=== PATIENT | female | born 1940 | race Caucasian/White ===

== ENCOUNTER → 2018-01-15 14:02 | Outpatient (CLI) | payer MEDICARE, SELFPAY ==
[2018-01-15 14:46] LABS: Alanine Aminotransferase 20 IU/L (9-52); Albumin 4.1 g/dL (3.5-5.0); Albumin Globulin Ratio 1.1 (1.0-2.8); Alkaline Phosphatase 81 U/L (38-126); Aspartate Aminotransferase 22 IU/L (14-36); Bilirubin Total 1.2 mg/dL (0.2-1.3); Blood Urea Nitrogen 14 mg/dL (7-17); Calcium 9.4 mg/dL (8.4-10.2); Carbon Dioxide 28 mmol/L (22-32); Chloride 101 mmol/L (98-107); Estimated Glomerular Filt Rate > 60.0 mL/min (>60); Globulin 3.6 g/dL (1.7-4.1); Glucose 115 mg/dL (80-110); HEMOLYSIS < 15 (0-50); Potassium 4.5 mmol/L (3.4-5.1); Sodium 139 mmol/L (137-145); Total Protein 7.7 g/dL (6.3-8.2)
[2018-01-15 15:28] LABS: TSH w/ Reflex to FT4 3.26 uIU/mL (0.47-4.68)
== END ==
PROVIDERS: PCP Internal Medicine; Visit Provider Internal Medicine
DX: E03.9 Hypothyroidism, unspecified (principal); I10 Essential (primary) hypertension
CPT/HCPCS: 36415; 80053; 84443

== ENCOUNTER → 2018-02-04 10:33 | Outpatient (CLI) | payer MEDICARE, SELFPAY ==
--- NOTE | 2018-02-04 10:34 | DI.RAD.S_ITS ---
PROCEDURE: XR HAND RT MIN 3V INDICATIONS: hand pain TECHNIQUE: 3 views of the hand(s) acquired. COMPARISON: None. FINDINGS: Bones: No fractures or dislocations. Carpal bones are normally aligned. No suspicious bony lesions. Degenerative joint disease is most marked at the IP joint of the thumb and DIP joints of the index and middle fingers. Triscaphe and first carpometacarpal joint disease also present. Accessory ossicles and soft tissue calcifications distal to the ulnar styloid process Soft tissues: No suspicious soft tissue calcifications. IMPRESSION: Osteoarthritis right hand Dictated by: Jay Gutierrez M.D. on 02/04/2018 at 11:26 Approved by: Jay Gutierrez M.D. on 02/04/2018 at 11:28
== END ==
PROVIDERS: PCP Internal Medicine; Visit Provider Internal Medicine
DX: M19.041 Primary osteoarthritis, right hand (principal); M79.641 Pain in right hand
CPT/HCPCS: 73130

== ENCOUNTER → 2018-05-10 14:31 | Outpatient (CLI) | payer MEDICARE, SELFPAY ==
--- NOTE | 2018-05-10 14:38 | DI.RAD.S_ITS ---
PROCEDURE: XR LUMBAR SPINE 2-3V INDICATIONS: Low back pain TECHNIQUE: 3 views of the lumbar spine were acquired. COMPARISON: None. FINDINGS: Bones: No fracture or focal osseous destruction. Grade 1 anterolisthesis of L3 on L4 and L4-L5. There is diffuse facet arthropathy. Mild narrowing of the L3-L4, L4-L5 and L5-S1 disc spaces. There appear to be 6 jgt-rpt-iwagxfi lumbar vertebra. Please see montage image for clarification of spinal segmental level numbering scheme used in this report Soft tissues: Overlying bowel gas pattern is normal. No suspicious soft tissue calcifications. There are aortic atherosclerotic vascular calcifications. IMPRESSION: Mild mid to lower lumbar disc degeneration and diffuse facet arthropathy. Grade 1 anterolisthesis of L3 on L4 and L4 on L5. Spinal segmental level anatomic variation. Please see montage image for clarification of the numbering scheme used in this report. Dictated by: Aden Rodgers M.D. on 05/10/2018 at 16:30 Approved by: Aden Rodgers M.D. on 05/10/2018 at 16:35
--- NOTE | 2018-05-10 14:38 | DI.RAD.S_ITS ---
PROCEDURE: XR PELVIS 1-2V INDICATIONS: Hip pain TECHNIQUE: Single view(s) of the pelvis acquired. COMPARISON: None. FINDINGS: Bones: No fractures or dislocations. No suspicious bony lesions. Lower lumbar discogenic changes. Bilateral mild to moderate joint degeneration. Degenerative sclerosis and spurring present at the pubic symphysis. Soft tissues: Visualized bowel gas pattern is normal. No suspicious soft tissue calcifications. IMPRESSION: Fefr-wx-vmpladcs bilateral hip degeneration. Lower lumbar degenerative disc disease. Dictated by: Aden Rodgers M.D. on 05/10/2018 at 16:35 Approved by: Aden Rodgers M.D. on 05/10/2018 at 16:37
== END ==
PROVIDERS: PCP Internal Medicine; Visit Provider Registered Nurse
DX: M54.5 Low back pain (principal); M51.36 Other intervertebral disc degeneration, lumbar region; M47.816 Spondylosis without myelopathy or radiculopathy, lumbar region; M43.16 Spondylolisthesis, lumbar region
CPT/HCPCS: 72100; 72170

== ENCOUNTER → 2019-04-02 13:51 | Outpatient (CLI) | payer MEDICARE, SELFPAY ==
--- NOTE | 2019-04-28 10:14 | P.HOLT.S_ITS ---
Internet Webmaster Report Referral & Results Date Patient Seen: 04/02/19 Requesting provider: Quinton Pierre Indication: Arrhythmia Duration of monitoring (days): 13 Diary information: There were 0 patient diary entries in 1 patient triggered event. The triggered event was associated with sinus rhythm Data: Minimum heart rate identified Lantus 32 beats per minute at 06:35 on 04/06/2019 Maximum sinus rhythm with 92 beats per minute at 17:36 on 04/14/2019 Maximum overall heart rate is 158 beats per minute at 15:34 on 04/12/2019 during a 12 beat run of SVT/atrial tachycardia Less than 1% of identified beats were PACs Approximately 2.4% of identified beats were PVCs including runs of ventricular bigeminy and ventricular trigeminy. Patient had a 58.2nd run of ventricular bigeminy and 20.2nd run of ventricular trigeminy Impression: Occasional runs of a supraventricular tachycardia or atrial tachycardia. Longest of which was 25.3 seconds a rate of 92 beats per minute. Occasional PVCs otherwise
== END ==
PROVIDERS: PCP Internal Medicine; Visit Provider Internal Medicine
DX: I49.9 Cardiac arrhythmia, unspecified (principal)
CPT/HCPCS: 0296T; 0298T

== ENCOUNTER → 2020-06-21 11:32 | Outpatient (CLI) | payer MEDICARE, SELFPAY ==
[2020-06-21 12:16] LABS: Add Manual Diff / Slide Review NO; Basophils Absolute Auto 0 /uL (0-100); Basophils Percent Auto 0.7 % (0-2); Eosinophils Absolute Auto 200 /uL (0-450); Hematocrit 41.7 % (36-46); Hemoglobin 14.1 g/dL (12.0-16.0); Lymphocytes Absolute Auto 1100 /uL (1100-4500); Lymphocytes Percent Auto 20.2 % (25-40); Mean Corpuscular HGB Conc 33.9 % (30-36); Mean Corpuscular Hemoglobin 31.1 PG (26-34); Mean Corpuscular Volume 91.6 fL (80-100); Monocytes Absolute Auto 500 /uL (0-900); Monocytes Percent Auto 8.6 % (3-14); Neutrophils Absolute Auto 3600 /uL (1500-7000); Neutrophils Percent Auto 67.5 % (50-75); Platelet Count 206 X10^3/uL (150-400); Red Blood Cell Count 4.55 X10^6/uL (4.0-5.2); White Blood Cell Count 5.3 X10^3/uL (4.5-11.0)
[2020-06-21 12:53] LABS: Alanine Aminotransferase 13 IU/L (<35); Albumin 3.8 g/dL (3.5-5.0); Albumin Globulin Ratio 1.2 (1.0-2.8); Alkaline Phosphatase 79 U/L (38-126); Aspartate Aminotransferase 26 IU/L (14-36); BUN Creatinine Ratio 22.2 (6-22); Bilirubin Total 1.1 mg/dL (0.2-1.3); Blood Urea Nitrogen 16 mg/dL (7-17); Calcium 9.3 mg/dL (8.4-10.2); Carbon Dioxide 29 mmol/L (22-32); Chloride 105 mmol/L (98-107); Estimated Glomerular Filt Rate > 60.0 mL/min (>60); Globulin 3.2 g/dL (1.7-4.1); Glucose 115 mg/dL (80-110); HEMOLYSIS < 15 (0-50); Potassium 4.3 mmol/L (3.4-5.1); Sodium 137 mmol/L (137-145)
== END ==
PROVIDERS: PCP Internal Medicine; Referring Provider Internal Medicine; Visit Provider Internal Medicine
DX: E03.9 Hypothyroidism, unspecified (principal); E78.2 Mixed hyperlipidemia; I10 Essential (primary) hypertension
CPT/HCPCS: 36415; 80053; 84443; 85025

== ENCOUNTER → 2023-05-15 12:09 | Outpatient (CLI) | payer MEDICARE, SELFPAY ==
[2023-05-15 13:13] LABS: Alanine Aminotransferase 14 IU/L (<35); Albumin 4.1 g/dL (3.5-5.0); Albumin Globulin Ratio 1.2 (1.0-2.8); Alkaline Phosphatase 90 U/L (38-126); Aspartate Aminotransferase 28 IU/L (14-36); BUN Creatinine Ratio 16.5 (6-22); Blood Urea Nitrogen 15 mg/dL (7-17); Calcium 9.5 mg/dL (8.4-10.2); Carbon Dioxide 31 mmol/L (22-32); Chloride 101 mmol/L (98-107); Estimated Glomerular Filt Rate > 60 mL/min (>60); Globulin 3.5 g/dL (1.7-4.1); Glucose 124 mg/dL (80-110); HEMOLYSIS < 15 (0-50); Sodium 138 mmol/L (137-145); Total Protein 7.6 g/dL (6.3-8.2)
[2023-05-15 13:27] LABS: Free T4, Direct Thyroxine 1.13 ng/dL (0.78-2.19)
[2023-05-15 13:42] LABS: Thyroid Stimulating Hormone 2.57 uIU/mL (0.47-4.68)
== END ==
PROVIDERS: PCP Internal Medicine; Referring Provider Internal Medicine; Visit Provider Internal Medicine
DX: E03.9 Hypothyroidism, unspecified (principal); E78.2 Mixed hyperlipidemia; I10 Essential (primary) hypertension
CPT/HCPCS: 36415; 80053; 84439; 84443

== ENCOUNTER 2024-05-16 12:16 | Emergency (ER) | payer MEDICARE, SELFPAY ==
[2024-05-16] VITALS (17 sets, daily range): BP systolic 183–240; BP diastolic 77–103; PULSE 56–126; RESP 12–38; TEMP 36.8; O2SAT 93–98; BMI 38.5
--- NOTE | 2024-05-16 13:01 | DI.RAD.S_ITS ---
PROCEDURE: XR CHEST 1V INDICATIONS: chest pain TECHNIQUE: One view of the chest was acquired. COMPARISON: [facility], CT, CT ANGIO CHEST PE, 09/14/2022, 4:47. [facility], CR, XR CHEST 1 VIEW, 07/05/2023, 17:27. [facility], CR, XR CHEST 1 VIEW, 05/15/2024, 14:08. FINDINGS: Surgical changes and devices: None. Lungs and pleura: Lungs are unchanged with a mild chronic interstitial prominence. No pleural effusions or pneumothorax. Mediastinum: Mediastinal contours appear normal. Heart size is at the upper limits of normal. Bones and chest wall: No suspicious bony lesions. Overlying soft tissues appear unremarkable. IMPRESSION: Chronic mild interstitial prominence, heart size at the upper limits of normal, possible mild chronic CHF pattern. Dictated by: Elvin Parker M.D. on 05/16/2024 at 13:33 Approved by: Elvin Parker M.D. on 05/16/2024 at 13:35
--- NOTE | 2024-05-16 13:08 | EKG_ITS ---
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
[2024-05-16 13:40] LABS: Add Manual Diff / Slide Review NO; Basophils Absolute Auto 0 /uL (0-100); Basophils Percent Auto 0.6 % (0-2); Eosinophils Absolute Auto 100 /uL (0-450); Eosinophils Percent Auto 1.9 % (2-4); Hematocrit 43.2 % (36-46); Hemoglobin 14.7 g/dL (12.0-16.0); Lymphocytes Absolute Auto 800 /uL (1100-4500); Lymphocytes Percent Auto 15.3 % (25-40); Mean Corpuscular Hemoglobin 31.1 PG (26-34); Mean Corpuscular Volume 91.4 fL (80-100); Monocytes Absolute Auto 400 /uL (0-900); Monocytes Percent Auto 6.9 % (3-14); Neutrophils Absolute Auto 4000 /uL (1500-7000); Neutrophils Percent Auto 75.3 % (50-75); Platelet Count 229 X10^3/uL (150-400); Red Blood Cell Count 4.73 X10^6/uL (4.0-5.2); Red Cell Distribution Width 13.8 % (11.6-14.8); White Blood Cell Count 5.4 X10^3/uL (4.5-11.0)
[2024-05-16 13:48] LABS: Prothrombin Time 11.1 SECONDS (9.4-12.5)
[2024-05-16 13:51] LABS: PTT Partial Thromboplastin Tim 34 SECONDS (25.1-36.5)
[2024-05-16 13:57] LABS: Alanine Aminotransferase 15 IU/L (<35); Albumin Globulin Ratio 1.2 (1.0-2.8); Alkaline Phosphatase 63 U/L (38-126); Aspartate Aminotransferase 35 IU/L (14-36); BUN Creatinine Ratio 17.5 (6-22); Bilirubin Total 1.4 mg/dL (0.2-1.3); Blood Urea Nitrogen 11 mg/dL (7-17); Calcium 8.9 mg/dL (8.4-10.2); Carbon Dioxide 25 mmol/L (22-32); Chloride 105 mmol/L (98-107); Creatine Kinase 51 U/L (30-135); Estimated Glomerular Filt Rate > 60 mL/min (>60); Globulin 3.4 g/dL (1.7-4.1); Glucose 110 mg/dL (80-110); Lipase 41 U/L (23-300); Magnesium 1.9 mg/dL (1.6-2.3); Potassium 4.3 mmol/L (3.4-5.1); Sodium 137 mmol/L (137-145); Total Protein 7.4 g/dL (6.3-8.2)
[2024-05-16 14:11] LABS: Troponin I < 0.012 ng/mL (0.01-0.034)
[2024-05-16 14:44] LABS: HEMOLYSIS 135 (0-50)
[2024-05-16 15:00] LABS: NT-proBNP (BNP-Adult 18+) 443 pg/mL (<450)
--- NOTE | 2024-05-16 15:23 | ED_ITS ---
HPI - General Adult General Chief complaint: Hypertension Stated complaint: high bp Time Seen by Provider: 05/16/24 15:23 Source: patient Mode of arrival: Family Vehicle History of Present Illness HPI narrative: Patient is an 84-year-old female history of atrial fibrillation, endometrial cancer, hypertension hyperlipidemia presenting to ER with elevated blood pressure. She was supposed to see your primary care doctor today at 2:00 p.m. but came to the ER instead. She was actually seen and evaluated at [facility] yesterday for the same at that time she would blood pressure of 206/68 she had full cardiac workup did not show evidence of end-organ damage she was given hydralazine labetalol and lisinopril. Today complaining of a mild headache says that her legs are weak although she can lift them and she can ambulate. No significant numbness or tingling. No difficulty speaking or facial droop. No real chest pain or palpitations or shortness of breath. Related Data Home Medications Medication Instructions Recorded Confirmed aspirin 325 mg tablet 325 mg PO DAILY 01/15/18 01/03/24 Previous Rx's Medication Instructions Recorded Disabled Parking Permit ea ##1 04/24/17 lisinopril 20 mg tablet 20 mg PO DAILY #90 tabs 09/17/23 carvedilol 3.125 mg tablet 6.25 mg (2 x 3.125 mg) PO BID #120 11/19/23 tabs lorazepam 0.5 mg tablet 0.5 mg PO Q8H PRN anxiety #30 tabs 04/01/24 simvastatin 40 mg tablet 40 mg PO DAILY #90 tabs 04/15/24 Disabled Parking #1 ea 04/21/24 Allergies Allergy/AdvReac Type Severity Reaction Status Date / Time citalopram [CITALOPRAM] AdvReac Unknown PT STATES Verified 05/16/24 12:58 SHE HAS NEVER TAKEN THIS clonazepam [CLONAZEPAM] AdvReac Unknown PT STATES Verified 05/16/24 12:58 SHE HAS NEVER TAKEN THIS paroxetine [From PAXIL] AdvReac Unknown Verified 05/16/24 12:58 Patient History Medical History (Updated 05/16/24 @ 16:43 by Ani Elaine DO) Vision disorder Hearing deficit Hay fever (~2012) Restless leg syndrome Foot pain (~2012) Chronic back pain (~1999) Mumps (~1944) Measles (~194) Chicken pox (~1944) Partial blindness (~2009) Depression (~2009) Hemorrhoid (~1961) Atrial fibrillation (~2008) Primary osteoarthritis involving multiple joints (09/10/17) Mixed hyperlipidemia (01/17/16) Gastroesophageal reflux disease without esophagitis Paroxysmal atrial fibrillation Essential hypertension Generalized anxiety disorder Acquired hypothyroidism Surgical History Anesthesia Status post bilateral salpingo-oophorectomy (BSO) (~03/2016) Status post hysterectomy (~03/2016) Status post appendectomy History of tonsillectomy Status post laparoscopic cholecystectomy (~1961) Family History Mother [facility] (myocardial infarction) Father No problems noted. Social History Smoking Status: Former smoker alcohol intake: never substance use type: does not use Smoking Status: Former smoker tobacco type: cigarettes alcohol intake frequency: 0-2 drinks per day Substance Use Type: does not use Exam Initial Vital Signs Initial Vital Signs: Vital Signs Temperature 98.2 F 05/16/24 12:53 Pulse Rate 65 05/16/24 12:53 Respiratory Rate 19 05/16/24 12:53 Blood Pressure 198/83 H 05/16/24 12:53 Pulse Oximetry 97 05/16/24 12:53 Oxygen Delivery Method Room Air 05/16/24 12:53 GENERAL: Alert tearful anxious 84-year-old female HEENT: Head atraumatic,EOMI, pupils reactive, face symmetric, moist mucous membranes CARDIOVASCULAR: Regular rate and rhythm without murmurs, rubs or gallops. RESPIRATORY: Breath sounds equal bilaterally, no wheezes rales or rhonchi. ABDOMEN: Soft, nontender. Normoactive bowel sounds all 4 quadrants. No guarding or rebound. EXTREMITIES: Normal range of motion, no clubbing or edema. Neurovascularly intact NEUROLOGICAL: Alert and oriented x4.Normal gait and speech. Cranial nerves II through XII grossly intact. Good vfjpnh-zu-pzfi, good wmxi-ow-mivy, strength equal bilaterally, no dysarthria or aphasia, sensation in tact to soft touch bilaterally, no visual changes, no facial droop SKIN: Warm, dry, no laceration, no petechiae, no rashes or lesions. Scores NIH Stroke Scale Level of Conciousness: Alert, keenly responsive Ask month/age: Answers both questions correctly. Open/close eyes, close hand: Performs both tasks correctly Best gaze horizontal: Normal Visual wood: No visual loss Facial palsy: Normal symetrical movement Left arm drift: No drift for full 10 sec Right arm drift: No drift for full 10 sec Left leg drift: No drift for full 5 sec Right leg drift: No drift for full 5 sec Limb ataxia: Absent Sensory on face/arms/legs: Normal, no sensory loss Best language: No aphasia, normal Dysarthria: Normal Extinction or inattention: No abnormality Total NIH Stroke scale score: 0 Course Orders Ordered: Discontinued Medications Aspirin (Aspirin 81 Mg Chew Tab) 324 mg PO NOW ONE Stop: 05/16/24 13:02 Last Admin: 05/16/24 16:28 Dose: Not Given Documented By: JARETH Labetalol HCl (Labetalol 20 Mg/4 Ml Syringe) 10 mg IV NOW ONE Stop: 05/16/24 15:39 Last Admin: 05/16/24 16:12 Dose: 10 mg Documented By: JARETH Lisinopril (Lisinopril 20 Mg Tablet) 40 mg PO NOW ONE Stop: 05/16/24 15:51 Last Admin: 05/16/24 16:28 Dose: 40 mg Documented By: JARETH Vital Signs Vital signs: Vital Signs - 8 hr 05/16/24 12:53 05/16/24 14:47 05/16/24 16:12 Temperature 98.2 F Pulse Rate 65 90 66 Respiratory Rate 19 20 Blood Pressure 198/83 H 231/100 H 193/83 H Pulse Oximetry 97 98 Oxygen Delivery Method Room Air Room Air 05/16/24 16:28 Temperature Pulse Rate 66 Respiratory Rate Blood Pressure 193/83 H Pulse Oximetry Oxygen Delivery Method Medical Decision Making Lab Data 05/16/24 13:21 05/16/24 13:21 Labs: Lab Results 05/16/24 Range/Units 13:21 WBC 5.4 (4.5-11.0) X10^3/uL RBC 4.73 (4.0-5.2) X10^6/uL Hgb 14.7 (12.0-16.0) g/dL Hct 43.2 (36-46) % MCV 91.4 (80-100) fL MCH 31.1 (26-34) PG MCHC 34.0 (30-36) % RDW 13.8 (11.6-14.8) % Plt Count 229 (150-400) X10^3/uL Neut % (Auto) 75.3 H (50-75) % Lymph % (Auto) 15.3 L (25-40) % [place] % (Auto) 6.9 (3-14) % Eos % (Auto) 1.9 L (2-4) % Baso % (Auto) 0.6 (0-2) % Neut # (Auto) 4000 (5829-9838) /uL Lymph # (Auto) 800 L (1772-6449) /uL [place] # (Auto) 400 (0-900) /uL Eos # (Auto) 100 (0-450) /uL Baso # (Auto) 0 (0-100) /uL PT 11.1 (9.4-12.5) SECONDS INR 1.0 (0.9-1.3) APTT 34 (25.1-36.5) SECONDS Sodium 137 (137-145) mmol/L Potassium 4.3 (3.4-5.1) mmol/L Chloride 105 (98-107) mmol/L Carbon Dioxide 25 (22-32) mmol/L BUN 11 (7-17) mg/dL Creatinine 0.63 (0.52-1.04) mg/dL Estimated GFR > 60 (>60) mL/min BUN/Creatinine Ratio 17.5 (6-22) Glucose 110 (80-110) mg/dL Calcium 8.9 (8.4-10.2) mg/dL Magnesium 1.9 (1.6-2.3) mg/dL Total Bilirubin 1.4 H (0.2-1.3) mg/dL AST 35 (14-36) IU/L ALT 15 (<35) IU/L Alkaline Phosphatase 63 (38-126) U/L Total Creatine Kinase 51 (30-135) U/L Troponin I < 0.012 (0.01-0.034) ng/mL NT-Pro-B Natriuret Pep 443 (<450) pg/mL Total Protein 7.4 (6.3-8.2) g/dL Albumin 4.0 (3.5-5.0) g/dL Globulin 3.4 (1.7-4.1) g/dL Albumin/Globulin Ratio 1.2 (1.0-2.8) Lipase 41 (23-300) U/L Imaging Data Chest x-ray: Radiologist's Impression: PROCEDURE: XR CHEST 1V INDICATIONS: chest pain TECHNIQUE: One view of the chest was acquired. COMPARISON: [facility], CT, CT ANGIO CHEST PE, 09/14/2022, 4:47. [facility], CR, XR CHEST 1 VIEW, 07/05/2023, 17:27. [facility], CR, XR CHEST 1 VIEW, 05/15/2024, 14:08. FINDINGS: Surgical changes and devices: None. Lungs and pleura: Lungs are unchanged with a mild chronic interstitial prominence. No pleural effusions or pneumothorax. Mediastinum: Mediastinal contours appear normal. Heart size is at the upper limits of normal. Bones and chest wall: No suspicious bony lesions. Overlying soft tissues appear unremarkable. IMPRESSION: Chronic mild interstitial prominence, heart size at the upper limits of normal, possible mild chronic CHF pattern. Dictated by: Elvin Parker M.D. on 05/16/2024 at 13:33 ECG Data Attestation: I personally reviewed and interpreted this ECG as follows: Prior ECG tracings: available for review Interpretation: Normal sinus rhythm rate 63 UT interval 140 QRS 82 QTC of [address] changes similar to prior MDM Narrative Medical decision making narrative: Patient 84-year-old female presenting today with high blood pressure. She has some mild weakness but no focal deficits NIH stroke scale of 0. Blood pressure is noted to be elevated with a systolic went as high as 240/103 ever has come down to 183/91 with labetalol and 40 of lisinopril. Hydralazine can cause rebound hypertension so not sure this is playing a part in her elevated blood pressure. Blood work has been reviewed she has no end-organ damage looks similar to yesterday I have received and reviewed records from [facility] emergency depart Chest x-ray no acute cardiopulmonary process EKG shows no ischemia 1550 Dr. Pierre consulted agrees that patient should double her lisinopril. He is happy to see her next week and will make arrangements I have discussed plan with patient and that PCP wants her to take the lisinopril. Apparently she wanted to make sure that Dr. Pierre was on board with this plan which he is. She has feeling a little bit better. Really see a need for repeat head CT today think symptoms are related elevated blood prssure Discharge Plan Departure Patient Disposition: Home Clinical Impression: Hypertension Instructions: DI for High Blood Pressure Activity Restrictions/Additional Instructions: *You have been diagnosed with hypertension *What to do: At this time please follow-up with Dr. Pierre. In the emergency department you were given 40 mg of lisinopril, and 10 mg of labetalol *Continue to take medications as directed Increase lisinopril to 40 mg *Follow up with your primary care provider in 2-3 days or call [phone] Follow-up with Dr. Pierre he should be able to see you early next week *Return to ER if you should have increase weakness headache chest pain shortness of breath or any new, worsening or concerning symptoms Prescriptions: No Action Disabled Parking Permit Qty: 1 0RF lisinopril 20 mg tablet 20 mg PO DAILY Qty: 90 3RF carvedilol 3.125 mg tablet 6.25 mg PO BID Qty: 120 12RF lorazepam 0.5 mg tablet 0.5 mg PO Q8H PRN (Reason: anxiety) Qty: 30 1RF simvastatin 40 mg tablet 40 mg PO DAILY Qty: 90 0RF (DME) Disabled Parking See Rx Instructions .ROUTE .MEDSUPPLY Qty: 1 0RF Rx Instructions: Patient qualifies for disabled parking as per the attached form. aspirin 325 mg tablet 325 mg PO DAILY Referrals: Quinton Pierre MD [Primary Care Provider] - Stand Alone Forms: Patient Portal/API
[2024-05-16] MEDS: LABETALOL 20 MG/4 ML SYRINGE 10 MG IV (16:12)
[2024-05-16] MEDS: lisinopriL 20 MG TABLET 40 MG PO (16:28)
== END 2024-05-16 17:10 | disposition home or self-care (01) ==
PROVIDERS: Emergency Provider Emergency Medicine; PCP Internal Medicine
DX: I10 Essential (primary) hypertension (principal); R07.9 Chest pain, unspecified; I48.91 Unspecified atrial fibrillation; E78.5 Hyperlipidemia, unspecified; R51.9 Headache, unspecified
CPT/HCPCS: 36415; 71045; 80053; 82550; 83690; 83735; 83880; 84484; 85025; 85610; 85730; 93005; 96374; 99284

== ENCOUNTER 2024-12-08 06:40 | Emergency (ER) | payer MEDICARE, SELFPAY ==
[2024-12-08] VITALS (31 sets, daily range): BP systolic 113–180; BP diastolic 56–107; PULSE 49–132; RESP 11–23; TEMP 36.8; O2SAT 92–98; BMI 39.0
--- NOTE | 2024-12-08 06:42 | DI.RAD.S_ITS ---
PROCEDURE: XR CHEST 1V INDICATIONS: Chest Pain,arrythmia TECHNIQUE: One view of the chest was acquired. COMPARISON: [facility], CR, XR CHEST 1V, 05/16/2024, 13:05. FINDINGS: Surgical changes and devices: None. Lungs and pleura: Patchy bilateral airspace opacities with superimposed bronchial thickening. Mediastinum: Mediastinal contours appear normal. Heart size is enlarged. Bones and chest wall: No suspicious bony lesions. Overlying soft tissues appear unremarkable. IMPRESSION: Patchy bilateral airspace opacities with superimposed bronchial thickening . Findings suggest infection, less likely aspiration . Recommend follow-up in 1-2 months with chest x-ray to ensure resolution. Dictated by: Joshua Sylvester M.D. on 12/08/2024 at 9:01 Approved by: Joshua Sylvester M.D. on 12/08/2024 at 9:02
--- NOTE | 2024-12-08 06:49 | EKG_ITS ---
[facility] [address] [place] [address] Test Date: 2024-12-08 Pat Name: Payal Smith Department: [facility] Room: Gender: Female Guide Visitor: LUCIANO LUCY : 1940 Requested By: Order Number: [id number] Reading MD: Quinton Pierre MD Measurements Intervals [place] Rate: 101 P: [place]: QRS: 32 QRSD: 82 T: 19 QT: 304 QTc: 394 Interpretive Statements Atrial fibrillation with rapid ventricular response Electronically Signed On 12-08-2024 7:29:28 PDT by Quinton Pierre MD
--- NOTE | 2024-12-08 07:06 | PC.NURSE ---
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 Patient said I should have told you but I get panic attacks. Panic attack requested to have the door wide open to see everything. Kept door/curtain open for patient comfort and sat with patient for a bit.
[2024-12-08 07:11] LABS: Add Manual Diff / Slide Review NO; Basophils Absolute Auto 100 /uL (0-100); Basophils Percent Auto 0.9 % (0-2); Eosinophils Absolute Auto 200 /uL (0-450); Hematocrit 42.3 % (36-46); Hemoglobin 14.3 g/dL (12.0-16.0); Lymphocytes Absolute Auto 1400 /uL (1100-4500); Mean Corpuscular HGB Conc 33.8 % (30-36); Mean Corpuscular Hemoglobin 30.7 PG (26-34); Monocytes Absolute Auto 700 /uL (0-900); Monocytes Percent Auto 10.6 % (3-14); Neutrophils Absolute Auto 3900 /uL (1500-7000); Neutrophils Percent Auto 63.5 % (50-75); Platelet Count 249 X10^3/uL (150-400); Red Blood Cell Count 4.65 X10^6/uL (4.0-5.2); Red Cell Distribution Width 13.8 % (11.6-14.8); White Blood Cell Count 6.2 X10^3/uL (4.5-11.0)
[2024-12-08 07:13] LABS: Prothrombin Time 11.3 SECONDS (9.4-12.5)
[2024-12-08 07:16] LABS: PTT Partial Thromboplastin Tim 34 SECONDS (25.1-36.5)
[2024-12-08 07:18] LABS: Alanine Aminotransferase 14 IU/L (<35); Albumin 3.7 g/dL (3.5-5.0); Albumin Globulin Ratio 1.2 (1.0-2.8); Alkaline Phosphatase 81 U/L (38-126); Aspartate Aminotransferase 27 IU/L (14-36); BUN Creatinine Ratio 16.7 (6-22); Blood Urea Nitrogen 12 mg/dL (7-17); Calcium 9.1 mg/dL (8.4-10.2); Carbon Dioxide 22 mmol/L (22-32); Chloride 108 mmol/L (98-107); Creatine Kinase 40 U/L (30-135); Estimated Glomerular Filt Rate > 60 mL/min (>60); Globulin 3.2 g/dL (1.7-4.1); Glucose 111 mg/dL (70-99); HEMOLYSIS < 15 (0-50); Lactate (Lactic Acid) 0.9 mmol/L (0.7-2.1); Lipase 71 U/L (23-300); Magnesium 1.8 mg/dL (1.6-2.3); Sodium 138 mmol/L (137-145); Total Protein 6.9 g/dL (6.3-8.2)
[2024-12-08 07:29] LABS: NT-proBNP (BNP-Adult 18+) 402 pg/mL (<450); Troponin I < 0.012 ng/mL (0.01-0.034)
--- NOTE | 2024-12-08 07:40 | ED.ARRPALP ---
HPI - Arrhythmia/Palpitations General Chief Complaint: Arrhythmia/Palpitations Stated Complaint: afib rvr Time Seen by Provider: 12/08/24 07:03 Source: patient and EMS Mode of arrival: EMS History of Present Illness HPI narrative: Patient is a 84-year-old female history of paroxysmal atrial fibrillation, hypertension, presenting today with atrial fibrillation and RVR. She reports that she has not had an episode and like 13 years. She was normal yesterday had no problems she went on a walk but this morning woke up and felt her heart was racing. He has no shortness of breath or other symptoms. She was not on anticoagulation except for aspirin. She used to live up here her son convinced her to move to [place] however she convinced her son that she can be back up here in [place] so she was currently staying in [facility]. She does not have any family in town. Related Data Home Medications Medication Instructions Recorded Confirmed aspirin 325 mg tablet 325 mg PO DAILY 01/15/18 05/27/24 Previous Rx's Medication Instructions Recorded Disabled Parking #1 ea 04/21/24 carvedilol 3.125 mg tablet 6.25 mg (2 x 3.125 mg) PO BID #120 10/09/24 tabs lisinopril 40 mg tablet 40 mg PO DAILY #90 tabs 10/09/24 lorazepam 0.5 mg tablet 0.5 mg PO Q8H PRN anxiety #30 tabs 10/09/24 simvastatin 40 mg tablet 40 mg PO DAILY #90 tabs 10/09/24 Allergies Allergy/AdvReac Type Severity Reaction Status Date / Time citalopram [CITALOPRAM] AdvReac Unknown PT STATES Verified 07/08/24 10:43 SHE HAS NEVER TAKEN THIS clonazepam [CLONAZEPAM] AdvReac Unknown PT STATES Verified 07/08/24 10:43 SHE HAS NEVER TAKEN THIS paroxetine [From PAXIL] AdvReac Unknown Verified 07/08/24 10:43 Patient History Medical History (Updated 12/08/24 @ 09:08 by Ani Elaine DO) Back pain with right-sided sciatica (02/2019) Vision disorder Hearing deficit Hay fever (~2012) Restless leg syndrome Foot pain (~2012) Chronic back pain (~1999) Mumps (~1943) Measles (~1944) Chicken pox (~1945) Partial blindness (~2009) Depression (~2009) Hemorrhoid (~1961) Atrial fibrillation (~2008) Primary osteoarthritis involving multiple joints (09/10/17) Mixed hyperlipidemia (01/17/16) Gastroesophageal reflux disease without esophagitis Paroxysmal atrial fibrillation Essential hypertension Generalized anxiety disorder Acquired hypothyroidism Surgical History Anesthesia Status post bilateral salpingo-oophorectomy (BSO) (~03/2016) Status post hysterectomy (~03/2016) Status post appendectomy History of tonsillectomy Status post laparoscopic cholecystectomy (~1961) Family History Mother [place] (myocardial infarction) Father No problems noted. Social History Smoking Status: Former smoker alcohol intake: never substance use type: does not use Smoking Status: Former smoker tobacco type: cigarettes alcohol intake frequency: 0-2 drinks per day Exam Initial Vital Signs Initial Vital Signs: Vital Signs Temperature 98.2 F 12/08/24 06:52 Pulse Rate 108 H 12/08/24 06:52 Respiratory Rate 19 12/08/24 06:52 Blood Pressure 135/77 12/08/24 06:52 Pulse Oximetry 94 12/08/24 06:52 Oxygen Delivery Method Room Air 12/08/24 06:52 GENERAL: Alert pleasant 84-year-old female and in no acute distress. HEENT: Head atraumatic,EOMI, pupils reactive, face symmetric, moist mucous membranes CARDIOVASCULAR: Irregularly irregular. RESPIRATORY: Breath sounds equal bilaterally, no wheezes rales or rhonchi. ABDOMEN: Soft, nontender. Normoactive bowel sounds all 4 quadrants. No guarding or rebound. EXTREMITIES: Normal range of motion, no clubbing or edema. Neurovascularly intact NEUROLOGICAL: Alert and oriented x4.Normal gait and speech. Cranial nerves II through XII grossly intact. SKIN: Warm, dry, no laceration, no petechiae, no rashes or lesions. Procedures Cardioversion Time of Cardioversion: 08:30 Consent Signed: Yes Indication: Atrial fibrillation with RVR Stability: Stable Number of attempts (shocks): 1 Joules used: 120 Cardiac rhythm post-cardioversion: Normal sinus rhythm Procedural Sedation Time of procedure: 08:30 Consent signed: Yes Time out performed: Yes Indication: cardioversion ASA Class: III Mallampati Airway Classification: Class III IV Propofol dose (mg): 50 Intraservice time/total sedation time (min): 12 ED Sedation Level: Moderate (Concious) Patient Tolerated Procedure: Well Complications: hypoventilation Interventions: Airway repositioned, Assist by BVM and Oxygen applied Course Orders Ordered: ED Orders 12/08/24 08:53 EKG-12 Lead Stat Discontinued Medications Aspirin (Aspirin 81 Mg Chew Tab) 324 mg PO NOW ONE Stop: 12/08/24 06:43 Last Admin: 12/08/24 12:15 Dose: 324 mg Documented By: TRAY Propofol (Propofol 200 Mg/20 Ml Vial) 90 mg 1 mg/kg (90 mg) IV NOW ONE Stop: 12/08/24 08:29 Last Admin: 12/08/24 08:45 Dose: 50 mg Documented By: TRAY Vital Signs Vital signs: Vital Signs - 8 hr 12/08/24 08:30 12/08/24 08:30 12/08/24 08:39 Pulse Rate 130 H Respiratory Rate 19 Blood Pressure 113/73 128/72 Pulse Oximetry 93 12/08/24 08:39 12/08/24 08:45 12/08/24 08:45 Pulse Rate 132 H 125 H Respiratory Rate 13 22 Blood Pressure 140/86 Pulse Oximetry 96 12/08/24 08:50 12/08/24 08:50 12/08/24 08:56 Pulse Rate 55 L Respiratory Rate 22 Blood Pressure 125/62 126/62 Pulse Oximetry 98 12/08/24 08:56 12/08/24 09:00 12/08/24 09:00 Pulse Rate 55 L 55 L Respiratory Rate 16 19 Blood Pressure 127/61 Pulse Oximetry 96 94 12/08/24 09:05 12/08/24 09:05 12/08/24 09:10 Pulse Rate 53 L Respiratory Rate 21 Blood Pressure 134/56 L 130/60 Pulse Oximetry 96 12/08/24 09:10 12/08/24 09:15 12/08/24 09:15 Pulse Rate 55 L 53 L Respiratory Rate 19 11 L Blood Pressure 141/65 H Pulse Oximetry 95 93 12/08/24 09:20 12/08/24 09:20 12/08/24 09:25 Pulse Rate 54 L 52 L Respiratory Rate 16 14 Blood Pressure 146/67 H Pulse Oximetry 94 94 12/08/24 09:25 12/08/24 09:30 12/08/24 09:30 Pulse Rate 52 L Respiratory Rate 12 Blood Pressure 130/60 152/65 H Pulse Oximetry 94 12/08/24 09:35 12/08/24 09:35 12/08/24 09:40 Pulse Rate 53 L 57 L Respiratory Rate 22 22 Blood Pressure 139/58 L Pulse Oximetry 94 94 12/08/24 09:40 12/08/24 10:00 12/08/24 10:01 Pulse Rate 54 L 53 L Respiratory Rate 23 15 Blood Pressure 137/61 Pulse Oximetry 95 95 12/08/24 10:01 12/08/24 10:20 12/08/24 10:20 Pulse Rate 51 L Respiratory Rate 15 Blood Pressure 151/67 H 155/65 H Pulse Oximetry 94 12/08/24 10:30 12/08/24 10:41 12/08/24 10:41 Pulse Rate 49 L 60 Respiratory Rate 17 Blood Pressure 141/64 H Pulse Oximetry 95 95 12/08/24 11:00 12/08/24 11:00 12/08/24 11:20 Pulse Rate 56 L Respiratory Rate 18 Blood Pressure 162/66 H 171/70 H Pulse Oximetry 92 12/08/24 11:20 12/08/24 11:30 12/08/24 11:41 Pulse Rate 58 L 58 L 57 L Respiratory Rate 13 19 Blood Pressure Pulse Oximetry 95 96 96 12/08/24 11:41 12/08/24 12:00 12/08/24 12:00 Pulse Rate 57 L Respiratory Rate 21 Blood Pressure 180/72 H 179/91 H Pulse Oximetry MDM - Arrhythmia/Palpitations Lab Data 12/08/24 06:45 12/08/24 06:45 Labs: Lab Results 12/08/24 Range/Units 06:45 WBC 6.2 (4.5-11.0) X10^3/uL RBC 4.65 (4.0-5.2) X10^6/uL Hgb 14.3 (12.0-16.0) g/dL Hct 42.3 (36-46) % MCV 91.0 (80-100) fL MCH 30.7 (26-34) PG MCHC 33.8 (30-36) % RDW 13.8 (11.6-14.8) % Plt Count 249 (150-400) X10^3/uL Neut % (Auto) 63.5 (50-75) % Lymph % (Auto) 22.0 L (25-40) % [place] % (Auto) 10.6 (3-14) % Eos % (Auto) 3.0 (2-4) % Baso % (Auto) 0.9 (0-2) % Neut # (Auto) 3900 (2519-2045) /uL Lymph # (Auto) 1400 (6006-7409) /uL [place] # (Auto) 700 (0-900) /uL Eos # (Auto) 200 (0-450) /uL Baso # (Auto) 100 (0-100) /uL PT 11.3 (9.4-12.5) SECONDS INR 1.0 (0.9-1.3) APTT 34 (25.1-36.5) SECONDS Sodium 138 (137-145) mmol/L Potassium 4.0 (3.4-5.1) mmol/L Chloride 108 H (98-107) mmol/L Carbon Dioxide 22 (22-32) mmol/L BUN 12 (7-17) mg/dL Creatinine 0.72 (0.52-1.04) mg/dL Estimated GFR > 60 (>60) mL/min BUN/Creatinine Ratio 16.7 (6-22) Glucose 111 H (70-99) mg/dL Lactate 0.9 (0.7-2.1) mmol/L Calcium 9.1 (8.4-10.2) mg/dL Magnesium 1.8 (1.6-2.3) mg/dL Total Bilirubin 1.0 (0.2-1.3) mg/dL AST 27 (14-36) IU/L ALT 14 (<35) IU/L Alkaline Phosphatase 81 (38-126) U/L Total Creatine Kinase 40 (30-135) U/L Troponin I < 0.012 (0.01-0.034) ng/mL NT-Pro-B Natriuret Pep 402 (<450) pg/mL Total Protein 6.9 (6.3-8.2) g/dL Albumin 3.7 (3.5-5.0) g/dL Globulin 3.2 (1.7-4.1) g/dL Albumin/Globulin Ratio 1.2 (1.0-2.8) Lipase 71 (23-300) U/L ECG Data Attestation: I personally reviewed and interpreted this ECG as follows: Prior ECG tracings: available for review Interpretation: Atrial fibrillation rate 101 no acute ischemia prior EKGs in 2023 shows a sinus rhythm, EKGs in 2014 also shows a sinus rhythm no other EKGs EKGs 2. Sinus rhythm rate 56 TX interval 150 QRS 86 QTC 430 MDM Narrative Medical decision making narrative: Patient is a teofilo 84-year-old female presenting today in AFib with RVR. She does have a history of paroxysmal AFib has not had an episode in a number of years is not on anticoagulation. She was quite active was able to walk yesterday without any kind of difficulty but woke up this morning feeling fluttering in her chest. Blood work has been reviewed No leukocytosis no anemia Electrolytes within normal limits creatinine 0.72 Troponin negative, BNP 402 Bilirubin liver enzymes within normal limits Chest x-ray no acute cardiopulmonary process EKGs reviewed 1st 1 does show AFib with RVR 2nd EKGs sinus rhythm without ischemia Patient has no contraindications for cardioversion. We have called [id number] who is on her way to come pick her up. He was easily cardioverted after 1 attempt. She was feeling much better. Patient had did have an episode of bloody stool last night she thinks it is possible she has hemorrhoids. She was not anemic today however hesitant to start her on Eliquis despite having a CHADS-VASc score of 4. She has close follow-up with outpatient provider who has already referred her to a local sailor. Encouraged her to keep taking aspirin Discharge Plan Departure Patient Disposition: Home Clinical Impression: Atrial fibrillation Instructions: DI for Atrial Fibrillation Activity Restrictions/Additional Instructions: *You have been diagnosed with atrial fibrillation *What to do: *Continue to take medications as directed You may need to be on hold and called Eliquis, however for now continue aspirin *Follow up with your primary care provider in 2-3 days or call [phone] Please call and follow-up with primary care provider you will need a new 1 if you should be moving *Return to ER if you should have increasing chest pain palpitations weak [or] any new, worsening or concerning symptoms Prescriptions: No Action (DME) Disabled Parking See Rx Instructions .ROUTE .MEDSUPPLY Qty: 1 0RF Rx Instructions: Patient qualifies for disabled parking as per the attached form. carvedilol 3.125 mg tablet 6.25 mg PO BID Qty: 120 12RF lorazepam 0.5 mg tablet 0.5 mg PO Q8H PRN (Reason: anxiety) Qty: 30 0RF lisinopril 40 mg tablet 40 mg PO DAILY Qty: 90 3RF simvastatin 40 mg tablet 40 mg PO DAILY Qty: 90 3RF aspirin 325 mg tablet 325 mg PO DAILY Referrals: Quinton Pierre MD [Primary Care Provider] - Stand Alone Forms: Patient Portal/API/Survey
[2024-12-08] MEDS: propofoL 200 MG/20 ML VIAL 90 MG IV (08:45)
--- NOTE | 2024-12-08 08:55 | EKG_ITS ---
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
[2024-12-08] MEDS: ASPIRIN 81 MG CHEW TAB 324 MG PO (12:15)
== END 2024-12-08 12:26 | disposition home or self-care (01) ==
PROVIDERS: Emergency Medicine; Emergency Provider Emergency Medicine; PCP Internal Medicine
DX: I48.91 Unspecified atrial fibrillation (principal); Z79.82 Long term (current) use of aspirin
CPT/HCPCS: 71045; 80053; 82550; 83605; 83690; 83735; 83880; 84484; 85025; 85610; 85730; 92960; 93005; 93010; 99152; 99284; 99285; J2704